=== PATIENT | female | born 1990 ===

== ENCOUNTER 2021-07-08 13:14 | Inpatient (IN) | payer OTHER, SELFPAY ==
[2021-07-08 13:04] LABS: Basophils % 0.1 % (0-1.3); Hematocrit 36.4 % (36.0-45.0); Lymphocytes % 13.7 % (15.3-44.8); MPV 6.9 fL (7.6-11.3); RBC Red Blood Cell Count 3.94 M/uL (3.86-4.86)
[~2021-07-08 13:14] MED LIST: BUTORPHANOL 1 MG/ML INJ IV PRN; CARBOPROST TROME 250 MCG/ML IM PRN; METHYLERGONOVINE 0.2MG/ML AMP IM PRN; OXYTOCIN/LR 20 UNIT/1,000 ML BAG IV SCH; PROMETHAZINE INJ 25 MG/ML AMP IM PRN; Ringers Lactate 1,000 ML IV PRN; Ringers Lactate 1,000 ML IV SCH
[2021-07-08 14:12] VITALS: BMI 25.9
[2021-07-08] MEDS ORDERED: FENTANYL/BUPIVACAINE/NS/PF 200 MCG/100 ML BAG EP PRN (14:36)
[2021-07-08] MEDS ORDERED: FENTANYL CITR 100 MCG/2 ML IV ONE (14:36)
[2021-07-08] MEDS ORDERED: BUPIVACAINE 0.25% PF 30 ML VIAL IV ONE (14:38)
--- NOTE | 2021-07-08 15:23 | PREOPHP ---
Date of Admission: 07/08/2021 History Of Present Illness: A 30-year-old, 2, para 0, 1 first trimester, spontaneous abortio n. Came into the office reporting contractions. Was noted to be approximately 3 cm that she also th ought membranes were ruptured. Nitrazine was faintly positive at that point. Sent to Labor and Deli very. She is now martin fairly regularly. She is 3.5 cm, vertex, -1 station. Complete rupture of membranes, clear fluid. Bloody show noted. We will start Pitocin and anticipate delivery someti me later this afternoon. Family History: She has 2 grandparents with hypertension and an aunt with hypertension as well. Unc le and maternal grandmother with heart attacks. Mother, father, and 1 aunt with cancers, sites unspe cified. Past Surgical History: No previous surgery. Social History: Does not smoke. Allergies: NO ALLERGIES. Physical Examination: HEENT: Clear. Pupils equal, round, and reactive to light and accommodation. Conjunctivae well perf used. No oral, lingual, or buccal lesions. Chest and Lungs: Clear. Heart: Without murmurs, thrills, heaves, or rubs. Breasts: Without masses on previous visits. Abdomen: Term size. Extremities: Clear without edema, cyanosis, or clubbing. Pelvic: As stated, she is now 3.5 cm, 60%, -1 station. Clear fluid. Bloody show. Assessment And Plan: Anticipate more active labor soon. Will be requesting epidural. JESSICA/CAROLE Voice ID: [id number]
[2021-07-08] MEDS ORDERED: FENTANYL CITR 100 MCG/2 ML ONE (15:41)
[2021-07-08] MEDS ORDERED: miSOPROStoL 100 MCG TAB ONE (15:45)
[2021-07-08] MEDS ORDERED: IBUPROFEN 200 MG TAB PO PRN (17:25)
[2021-07-08] MEDS ORDERED: ACETAMINOPHEN 500 MG TAB PO PRN (17:25)
[2021-07-08] MEDS ORDERED: BISACODYL 10 MG RECTAL SUPP PR PRN (17:25)
[2021-07-08] MEDS ORDERED: DIPHENHYDRAMINE 25 MG TAB/CAP PO PRN (17:25)
[2021-07-08] MEDS ORDERED: Oxycodone HCl/Acetaminophen 1 TAB TAB PO PRN ×2 (17:25)
[2021-07-08] MEDS ORDERED: DOCUSATE NA/SENNA CONC 1 TAB PO PRN (17:25)
[2021-07-08] MEDS ORDERED: OXYTOCIN/LR 20 UNIT/1,000 ML BAG IV SCH (18:00)
--- NOTE | 2021-07-08 20:05 | PN ---
The patient has just gotten her epidurals quite comfortable. She can still move her legs. She is no w 7 cm. There is a little swelling on the cervix about the 10 o'clock position. With contraction, n ow she can almost reduce the cervix entirely. Baby is about 0 station. She is martin every 2 m inutes. Baby still looks good on the monitor. We will check her again in 10-15 minutes as it looks like she is starting to progress much more rapidly now. JESSICA/CAROLE Voice ID: [id number] Report ID: [id number]
--- NOTE | 2021-07-08 20:59 | OP ---
Surgeon: Jerrell Benitez MD Procedure In Detail: A 30-year-old, primigravida, 38 weeks 4 days, came in to my office for an exam, noted to be 3 cm and with leaking membranes. Sent to Labor and Delivery. Started on Pitocin. Comp lete rupture of membranes was performed at that time, clear fluid. The patient received epidural ane sthesia, which gave excellent effect. Second stage of about 30-45 minutes. Spontaneous vaginal deli very of a 6-pound and 1-ounce male , Apgars 6 and 9. Terminal-fresh meconium noted at time of delivery. No suspicion of aspiration. Oxygen with pressurized mass, 2-3 puffs and baby was breathin g and crying well. Apgars 9 at 5 minutes. Two small first-degree lacerations, 1 on the right side o f the introitus and 1 at the left side of the introitus towards the posterior fourchette, both suture d with 2-0 chromic running locked stitches. Schultze delivery of the placenta, which was inspected a nd noted to be intact and normal. Estimated blood loss 350 mL. The patient tolerated all procedures well. Final Diagnoses: Term intrauterine at 38 weeks 4 days, spontaneous labor and rupture of me mbranes. Epidural anesthesia. Meconium noted at time of delivery. No suspicion of aspiration. Rh positive, immune to Rubella. NBC/MODL Voice ID: [id number] Report ID: [id number]
[2021-07-08 22:21] LABS: RPR (Rapid Plasma Reagin) NON-REACT (NON-REACT)
[2021-07-08] MEDS ORDERED: Ringers Lactate 2,000 ML IV ONE (23:23)
--- NOTE | 2021-07-09 11:24 | DS ---
Hospital Course: A 30-year-old, 2, para 0, 38 weeks 4 days, came to the office with leaking membranes, early labor. Sent to Labor and Delivery. Started on Pitocin augmentation. Subsequently, delivered a 6-pound 1-ounce male , Apgars 6 and 9. Meconium noted just at the time of deliver y. Fluid was clear with initial rupture. Baby responded well to oxygen and has done well since. Th e patient had epidural anesthesia. Sustained 2 first-degree lacerations, which were repaired with 2- 0 chromic. Schultze delivery of the placenta. 350 mL blood loss. afebrile, ambulating a nd voiding. Lochia is normal. She is Rh positive, immune to Rubella. Negative strep. No post epid ural problems. Requests no analgesics. Of note is that the patient's pulse was elevated when she en tered and this continued to be elevated, but her lochia is scant. She said she has always tended to have a slightly high pulse. We will get a TSH level today. We will have the report by next week and share that report with her. Otherwise though, the patient is completely without problems. She will talk to Dr. Harrison this morning. The baby will be circumcised and the patient will go home lat er this afternoon. She is leaving for the [employer] in 1 month and will see me prior to dismissal. Tdap has been suggested during her and if the patient has not already had it, she will ge t it before she leaves. Final Diagnoses: Intrauterine gestation, 38 weeks 4 days, spontaneous rupture of membranes, labor au gmentation, vaginal delivery, epidural anesthesia, meconium staining. No suspicion of aspiration. T dap offered. JESSICA/CAROLE Voice ID: [id number] Report ID: [id number]
[2021-07-09 15:40] VITALS: BP 118/72; TEMP 97.7
[2021-07-09] MEDS ORDERED: Tdap (Diph,Pertuss(Acell),Tet Vac) 0.5 ML SYR IMVAC ONE (16:00)
[2021-07-12 19:43] LABS: HBsAG Nonreactive (Nonreactive)
== END 2021-07-09 19:15 | disposition home or self-care (01) | DRG 807 ==
LOC: 2ND-WC 13:14
PROVIDERS: ADMIT Specialist; ATTEND Specialist
PROC: 10E0XZZ Delivery of Products of Conception, External Approach (ICD-10-PCS; principal; 2021-07-08)
PROC: 0HQ9XZZ Repair Perineum Skin, External Approach (ICD-10-PCS; 2021-07-08)
DX: O70.0 First degree perineal laceration during delivery (principal); Z37.0 Single live birth; Z3A.38 38 weeks gestation of pregnancy; Z23 Encounter for immunization
CPT/HCPCS: 36415; 84443; 85025; 86592; 86901; 87340; 90471; 90715; J2210; J2590; J3010; J7120